=== PATIENT | female | born 1990 | race Caucasian/White ===

== ENCOUNTER 2018-08-08 17:29 | Emergency (ER) | payer OTHER, SELFPAY ==
--- NOTE | 2018-08-08 19:16 | EDM.PDOC ---
ED HPI GENERAL MEDICAL PROBLEM - General Chief Complaint: Skin Complaint Stated Complaint: WOOD TICK BITE/FEELS MELISSA [phone] Time Seen by Provider: 08/08/18 19:00 Source of Information: Reports: Patient, RN History Limitations: Reports: No Limitations - History of Present Illness INITIAL COMMENTS - FREE TEXT/NARRATIVE: 2 tick bites to left leg on Sunday. unaware of other bites. bruised are left upper inner thigh from where tick removed, Bumb on left side of head and neck. - Related Data Allergies Allergy/AdvReac Type Severity Reaction Status Date / Time Unable to Assess Allergy Unverified 08/08/18 18:38 Home Meds: Home Meds Albuterol Sulfate [Albuterol Sulfate HFA] 1 - 2 puff PO ASDIRECTED 11/04/13 [ History] Past Medical History Respiratory History: Reports: Asthma Social & Family History - Tobacco Use Smoking Status *Q: Current Every Day Smoker Years of Tobacco use: 5 Packs/Tins Daily: 0.5 - Caffeine Use Caffeine Use: Reports: Energy Drinks, Soda - Alcohol Use Days Per Week of Alcohol Use: 1 Number of Drinks Per Day: 1 Total Drinks Per Week: 1 - Recreational Drug Use Recreational Drug Use: Yes Recreational Drug Type: Reports: Marijuana/Hashish Recreational Drug Use Frequency: Socially ED ROS GENERAL - Review of Systems Review Of Systems: ROS reveals no pertinent complaints other than HPI. ED EXAM, SKIN/RASH Exam: See Below Exam Limited By: No Limitations General Appearance: Alert, Mild Distress Eye Exam: Bilateral Eye: EOMI Ears: Normal External Exam, Normal TMs Nose: Normal Inspection Throat/Mouth: Normal Inspection Head: Atraumatic Neck: Lymphadenopathy (L) (anterior. posterior cervical and ocipital lymphadenopathy on left. no lesions or sores in area noted) Respiratory/Chest: No Respiratory Distress, Lungs Clear, Normal Breath Sounds Cardiovascular: Normal Peripheral Pulses, Regular Rate, Rhythm GI/Abdominal: Normal Bowel Sounds Extremities: Other (tick bite left upper inner thigh quarter size echymosis, minimal erythema. inguinal lymph nodes enlarged on left) Neurological: Alert, Oriented, Normal Cognition Psychiatric: Flat Affect Skin: Warm, Dry, No Rash, Ecchymosis, Erythema (scant surrounding bite, no typical bullseye rash apparant), Wound/Incision (left thigh). No: Increased Warmth Associated features: Tenderness. No: Induration, Scaling Course - Vital Signs Last Recorded V/S: Last Vital Signs Temp 96.0 F 08/08/18 18:32 Pulse 95 08/08/18 18:32 Resp 20 08/08/18 18:32 BP 123/80 08/08/18 18:32 Pulse Ox 100 08/08/18 18:32 Departure - Departure Time of Disposition: 19:13 Disposition: Home, Self-Care 01 Condition: Good Clinical Impression: Tick bite of left thigh with local reaction Qualifiers: Encounter type: initial encounter Qualified Code(s): S70.362A - Insect bite ( nonvenomous), left thigh, initial encounter - Discharge Information Instructions: Tick Bite Information, Adult, [id number] Forms: ED Department Discharge Additional Instructions: alternate tylenol 650mg and ibuprofen 600mg every 4 hours as needed for discomfort doxycycline 100mg one twice daily for 2 weeks clinic follow up for recheck 10-14 days, sooner if symptoms worsen
== END 2018-08-08 19:22 | disposition home or self-care (01) ==
LOC: DL.ED 17:29
CPT/HCPCS: 99282

== ENCOUNTER 2018-11-12 17:31 | Emergency (ER) | payer OTHER ==
[2018-11-12] MEDS ORDERED: Albuterol/Ipratropium 3.0-0.5 MG/3 ML Neb Soln NEB ONE (17:55)
[2018-11-12] MEDS ORDERED: Sodium Chloride 0.9% 1,000 ML IV ONE (17:55)
[2018-11-12] MEDS ORDERED: methylPREDNISolone Sodium Succinate 125 MG/2 ML SDV IVPUSH ONE (17:55)
[2018-11-12] MEDS ORDERED: Sodium Chloride 0.9% 10 ML Syringe FLUSH PRN (17:55)
[2018-11-12] MEDS ORDERED: Ondansetron 4 MG/2 ML SDV IV ONE (18:02)
[2018-11-12] MEDS ORDERED: Codeine/guaiFENesin 100-10 MG/5 ML Syrup 5 ML Cup PO ONE (18:11)
[2018-11-12 18:23] LABS: ANION GAP 17.7; CHLORIDE,CL 103 mmol/L (101-111); SODIUM,NA 136 mmol/L (135-145)
--- NOTE | 2018-11-12 18:42 | EDM.PDOC ---
Scribed by Delma Walker 11/12/18 [id number] for Angélica Mckeon NP ED HPI GENERAL MEDICAL PROBLEM - General Chief Complaint: Respiratory Problem Stated Complaint: DIFFICULTY BREATHING, VOMITING Time Seen by Provider: 11/12/18 17:57 Source of Information: Reports: Patient, RN, RN Notes Reviewed History Limitations: Reports: No Limitations - History of Present Illness INITIAL COMMENTS - FREE TEXT/NARRATIVE: Patient presents to ER with complaint of coughing since yesterday, began vomiting today. Runny nose since yesterday. She admits to smoking 1/2 pack of cigars daily. Denies alcohol or drug use. She has had a cough since yesterday. She has had vomiting today. She has been vomiting, coughing, chest pains and shortness of breath. No diarrhea. Onset Date: 11/11/18 Duration: Getting Worse Location: Reports: Chest Quality: Reports: Ache Severity: Moderate Improves with: Reports: None Worsens with: Reports: None Associated Symptoms: Reports: No Other Symptoms - Related Data Allergies Allergy/AdvReac Type Severity Reaction Status Date / Time cefixime [From Suprax] Allergy Rash Verified 11/12/18 17:40 Home Meds: Home Meds Albuterol Sulfate [Albuterol Sulfate HFA] 1 - 2 puff PO ASDIRECTED PRN 11/04/13 [History] Albuterol [Ventolin HFA] 2 puff INH ASDIRECTED PRN 11/12/18 [History] Past Medical History Respiratory History: Reports: Asthma Social & Family History - Caffeine Use Caffeine Use: Reports: Energy Drinks, Soda ED ROS GENERAL - Review of Systems Review Of Systems: ROS reveals no pertinent complaints other than HPI. ED EXAM, GENERAL - Physical Exam Exam: See Below Exam Limited By: No Limitations General Appearance: Alert, WD/WN, No Apparent Distress Eye Exam: Bilateral Eye: EOMI, Normal Inspection, PERRL Ears: Normal External Exam, Normal Canal, Hearing Grossly Normal, Normal TMs Nose: Other (clear rhinorrhea) Throat/Mouth: Normal Inspection, Normal Lips, Normal Teeth, Normal Gums, Normal Oropharynx, Normal Voice, No Airway Compromise Head: Atraumatic, Normocephalic Neck: Normal Inspection, Supple, Non-Tender, Full Range of Motion Respiratory/Chest: Other (coarse). No: Wheezing Cardiovascular: Normal Peripheral Pulses, Regular Rate, Rhythm, No Edema, No Gallop, No JVD, No Murmur, No Rub GI/Abdominal: Normal Bowel Sounds, Soft, Non-Tender, No Organomegaly, No Distention, No Abnormal Bruit, No Mass (Female) Exam: Deferred Rectal (Female) Exam: Deferred Back Exam: Normal Inspection, Full Range of Motion, NT Extremities: Other (tender right hip) Neurological: Alert, Oriented, CN II-XII Intact, Normal Cognition, Normal Gait, Normal Reflexes, No Motor/Sensory Deficits Psychiatric: Anxious Skin Exam: Other (pale) Lymphatic: No Adenopathy Course - Vital Signs Last Recorded V/S: Last Vital Signs Temp 98.5 F 11/12/18 17:36 Pulse 126 H 11/12/18 17:56 Resp 24 H 11/12/18 17:36 BP 119/62 11/12/18 17:36 Pulse Ox 96 11/12/18 17:56 - Orders/Labs/Meds Orders: Active Orders 24 hr Category Date Time Status Peripheral IV Care [RC] . DIRECTED Care 11/12/18 17:56 Active RT Aerosol Therapy [RC] ASDIRECTED Care 11/12/18 17:56 Active Chest 1V Frontal [CR] Stat Exams 11/12/18 17:53 Taken DRUG SCREEN URINE BIORAD [URCHEM] Stat Lab 11/12/18 17:53 Ordered HCG QUALITATIVE,URINE [URCHEM] Stat Lab 11/12/18 17:52 Ordered UA RFX FERNY AND CULT IF INDIC [URIN] Stat Lab 11/12/18 17:53 Ordered Sodium Chloride 0.9% [Saline Flush] Med 11/12/18 17:55 Active 10 ml FLUSH ASDIRECTED PRN Peripheral IV Insertion Adult [OM.PC] Stat Oth 11/12/18 17:52 Ordered Medication Orders Sodium Chloride (Saline Flush) 10 ml FLUSH ASDIRECTED PRN PRN Reason: Keep Vein Open Last Admin: 11/12/18 18:10 Dose: 10 ml Labs: Laboratory Tests 11/12/18 11/12/18 Range/Units 17:59 17:59 WBC 17.2 H (5.0-10.0) 10^3/uL RBC 5.05 (4.2-5.4) 10^6/uL Hgb 15.6 (12.0-16.0) g/dL Hct 45.4 (37.0-47.0) % MCV 89.9 (80-100) fL MCH 30.9 (27.0-34.0) pg MCHC 34.4 (33.0-35.0) g/dL Plt Count 142 L (150-450) 10^3/uL Neut % (Auto) 89.4 H (42.2-75.2) % Lymph % (Auto) 5.1 L (20.5-50.1) % [place] % (Auto) 5.2 (2-8) % Eos % (Auto) 0.1 L (1.0-3.0) % Baso % (Auto) 0.2 (0.0-1.0) % Sodium 136 (135-145) mmol/L Potassium 3.7 (3.6-5.0) mmol/L Chloride 103 (101-111) mmol/L Carbon Dioxide 19.0 L (21.0-31.0) mmol/L Anion Gap 17.7 BUN 11 (7-18) mg/dL Creatinine 0.9 (0.6-1.3) mg/dL Est Cr Clr Drug Dosing 87.23 mL/min Estimated GFR (MDRD) > 60 BUN/Creatinine Ratio 12.22 Glucose 117 H (74-105) mg/dL Calcium 9.0 (8.4-10.2) mg/dl Total Bilirubin 0.9 (0.2-1.0) mg/dL AST 31 (10-42) IU/L ALT 24 (10-60) IU/L Alkaline Phosphatase 56 (42-121) IU/L Total Protein 7.8 (6.7-8.2) g/dl Albumin 4.6 (3.2-5.5) g/dl Globulin 3.2 Albumin/Globulin Ratio 1.44 Ethyl Alcohol < 5 mg/dL Meds: Medications Generic Name Dose Route Start Last Admin Trade Name Freq PRN Reason Stop Dose Admin Sodium Chloride 10 ml 11/12/18 17:55 11/12/18 18:10 Saline Flush FLUSH 10 ml ASDIRECTED PRN Administration Keep Vein Open Discontinued Medications Generic Name Dose Route Start Last Admin Trade Name Freq PRN Reason Stop Dose Admin Albuterol/Ipratropium 3 ml 11/12/18 17:55 11/12/18 18:04 Duoneb 3.0-0.5 Mg/3 Ml NEB 11/12/18 17:56 3 ml ONETIME ONE Administration Azithromycin 500 mg 11/12/18 18:55 Zithromax PO 11/12/18 18:56 ONETIME ONE Guaifenesin/Codeine Phosphate 5 ml 11/12/18 18:11 11/12/18 18:17 Robitussin Ac PO 11/12/18 18:12 5 ml ONETIME ONE Administration Sodium Chloride 1,000 mls @ 999 mls/hr 11/12/18 17:55 11/12/18 18:11 Normal Saline IV 11/12/18 18:55 999 mls/hr .BOLUS ONE Administration Methylprednisolone Sodium Succinate 125 mg 11/12/18 17:55 11/12/18 18:10 Solu-Medrol IVPUSH 11/12/18 17:56 125 mg ONETIME ONE Administration Ondansetron HCl 4 mg 11/12/18 18:02 11/12/18 18:10 Zofran IV 11/12/18 18:03 4 mg ONETIME ONE Administration - Radiology Interpretation Free Text/Narrative:: Chest xray: FINDINGS: Lungs: Unremarkable. No consolidation. Pleural space: Unremarkable. No pleural effusion. No pneumothorax. Heart/Mediastinum: Unremarkable. No cardiomegaly. Bones/joints: Unremarkable. IMPRESSION: 1. No acute findings. 2. No significant change is identified since the prior exam. Thank you for allowing us to participate in the care of your patient. Dictated and Authenticated by: Slim Loredo MD 11/12/2018 6:39 PM Central Time ([place] & [place]) See rad report Departure - Departure Time of Disposition: 18:57 Disposition: Home, Self-Care 01 Condition: Fair Clinical Impression: Acute asthma Acute bronchitis Qualifiers: Bronchitis organism: unspecified organism Qualified Code(s): J20.9 - Acute bronchitis, unspecified - Discharge Information *PRESCRIPTION DRUG MONITORING PROGRAM REVIEWED*: No *COPY OF PRESCRIPTION DRUG MONITORING REPORT IN PATIENT JEANINE: No Instructions: Upper Respiratory Infection, Adult, [id number], Shortness of Breath, Adult, [id number], Acute Bronchitis, Adult, [id number], Bronchospasm , Adult, [id number] Forms: ED Department Discharge Additional Instructions: RX: Azithromycin, prednisone, Cherratussin Continue to use nebulizers and inhalers as directed - My Orders Last 24 Hours: My Active Orders 11/12/18 17:52 HCG QUALITATIVE,URINE [URCHEM] Stat Peripheral IV Insertion Adult [OM.PC] Stat 11/12/18 17:53 Chest 1V Frontal [CR] Stat DRUG SCREEN URINE BIORAD [URCHEM] Stat UA RFX FERNY AND CULT IF INDIC [URIN] Stat 11/12/18 17:55 Sodium Chloride 0.9% [Saline Flush] 10 ml FLUSH ASDIRECTED PRN 11/12/18 17:56 Peripheral IV Care [RC] . DIRECTED RT Aerosol Therapy [RC] ASDIRECTED - Assessment/Plan Last 24 Hours: My Active Orders 11/12/18 17:52 HCG QUALITATIVE,URINE [URCHEM] Stat Peripheral IV Insertion Adult [OM.PC] Stat 11/12/18 17:53 Chest 1V Frontal [CR] Stat DRUG SCREEN URINE BIORAD [URCHEM] Stat UA RFX FERNY AND CULT IF INDIC [URIN] Stat 11/12/18 17:55 Sodium Chloride 0.9% [Saline Flush] 10 ml FLUSH ASDIRECTED PRN 11/12/18 17:56 Peripheral IV Care [RC] . DIRECTED RT Aerosol Therapy [RC] ASDIRECTED I have read and agree with the documentation that has been completed regarding this visit. By signing this record, I attest that the documentation was completed in my physical presence and is an accurate record of the encounter.
[2018-11-12] MEDS ORDERED: Azithromycin 250 MG Tab PO ONE (18:55)
== END 2018-11-12 19:11 | disposition home or self-care (01) ==
LOC: DL.ED 17:31
DX: J45.901 Unspecified asthma with (acute) exacerbation (principal); F17.210 Nicotine dependence, cigarettes, uncomplicated; Z88.1 Allergy status to other antibiotic agents; Z79.899 Other long term (current) drug therapy
CPT/HCPCS: 36415; 71045; 80053; 80320; 85025; 94640; 96361; 96374; 96375; 99283; A9270; J2405; J2930; J7030; G0480; J7620-GY

== ENCOUNTER 2019-07-30 12:44 | Emergency (ER) | payer SELFPAY ==
--- NOTE | 2019-07-30 12:50 | EDM.PDOC ---
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 Pt is 14 weeks, G1,P0 with report of a normal OB US last week. She called her clinic in [place] today and was told to take a hot bath and Tylenol. She took a bath and the pain went away briefly, but then returned and become severe. She called back and was told to go to the ER. She denies vaginal bleeding, discharge, contractions, leak of vag. fluid, or passage of clots or tissue. Denies vomiting, diarrhea, or dysuria. Denies PMHx, or PSHx. Pt denies chest pain, cough, shortness of breath, eye irritation/ drainage, loss of taste or smell, red tongue, rash or skin lesions, fevers, chills, recent travel, or known exposure to confirmed or suspected Covid-19 cases. Onset: Gradual Duration: Getting Worse, Waxing/Waning Location: Reports: Abdomen, Back, Pelvis Quality: Reports: Ache, Other (Cramps) Severity: Severe Improves with: Reports: None Worsens with: Reports: Movement Associated Symptoms: Reports: No Other Symptoms Right Lower Abdomen Pain Score (Numeric/FACES): 8 - Related Data Allergies Allergy/AdvReac Type Severity Reaction Status Date / Time cefixime [From Suprax] Allergy Rash Verified 07/30/19 13:00 Home Meds: Home Meds Albuterol Sulfate [Albuterol Sulfate HFA] 1 - 2 puff PO ASDIRECTED PRN 11/04/13 [History] Pnv No.95/Ferrous Fum/Folic AC [ Caplet] 2 tab PO DAILY 07/30/19 [ History] Past Medical History HEENT History: Reports: None Cardiovascular History: Reports: None Respiratory History: Reports: Asthma Gastrointestinal History: Reports: None Genitourinary History: Reports: None : 1 Para: 0 LMP (Approximate): (14 weeks per pt as of 6/3/20.) Musculoskeletal History: Reports: None Neurological History: Reports: None Psychiatric History: Reports: None Endocrine/Metabolic History: Reports: None Hematologic History: Reports: None Immunologic History: Reports: None Oncologic (Cancer) History: Reports: None Dermatologic History: Reports: None - Past Surgical History Female Surgical History: Reports: D&C Social & Family History - Family History Family Medical History: Noncontributory - Caffeine Use Caffeine Use: Reports: Energy Drinks, Soda - Living Situation & Occupation Living situation: Reports: with Family ED ROS GENERAL - Review of Systems Review Of Systems: Comprehensive ROS is negative, except as noted in HPI. ED EXAM - Physical Exam Exam: See Below Exam Limited By: No Limitations General Appearance: Alert, WD/WN, No Apparent Distress Eye Exam: Bilateral Eye: Normal Inspection Nose: Normal Inspection, Normal Mucosa, No Blood Throat/Mouth: Normal Inspection, Normal Lips, Normal Teeth, Normal Gums, Normal Oropharynx, Normal Voice, No Airway Compromise Head: Atraumatic, Normocephalic Neck: Normal Inspection, Supple, Non-Tender, Full Range of Motion Respiratory/Chest: No Respiratory Distress, Lungs Clear, Normal Breath Sounds, No Accessory Muscle Use, Chest Non-Tender Cardiovascular: Normal Peripheral Pulses, Regular Rate, Rhythm, No Edema, No Gallop, No JVD, No Murmur, No Rub GI/Abdominal Exam: Normal Bowel Sounds, Soft, No Organomegaly, No Distention, No Abnormal Bruit, Guarding (at RLQ), Rebound (RLQ), Tender (RLQ). No: Rigid Rectal Exam: Deferred (Female) Exam: Other (Deferred) Heart Tones: Present Heart Tones per Min: 140 Movement: Not Appreciated Back Exam: Full Range of Motion, CVA Tenderness (R). No: CVA Tenderness (L), Vertebral Tenderness Extremities: Normal Inspection, Normal Range of Motion, Non-Tender, Normal Capillary Refill, No Pedal Edema Neurological: Alert, Oriented, CN II-XII Intact, Normal Cognition, Normal Gait, No Motor/Sensory Deficits Psychiatric: Anxious Skin Exam: Warm, Dry, Intact, Normal Color, No Rash Course - Vital Signs Last Recorded V/S: Last Vital Signs Temp 98.7 F 07/30/19 12:46 Pulse 79 07/30/19 12:46 Resp 16 07/30/19 12:46 BP 119/71 07/30/19 12:46 Pulse Ox 98 07/30/19 12:46 - Orders/Labs/Meds Orders: Active Orders 24 hr Category Date Time Status Heart Tones [RC] ASDIRECTED Care 07/30/19 12:54 Active Peripheral IV Care [RC] . DIRECTED Care 07/30/19 13:02 Active CHLAMYDIA AND GONORRHEA BY TMA Routine Lab 07/30/19 13:51 Received Sodium Chloride 0.9% [Saline Flush] Med 07/30/19 13:02 Active 10 ml FLUSH ASDIRECTED PRN Peripheral IV Insertion Adult [OM.PC] Stat Oth 07/30/19 13:02 Ordered Medication Orders Sodium Chloride (Saline Flush) 10 ml FLUSH ASDIRECTED PRN PRN Reason: Keep Vein Open Last Admin: 07/30/19 13:15 Dose: 10 ml Labs: Laboratory Tests 07/30/19 07/30/19 07/30/19 Range/Units 12:59 12:59 13:17 WBC 9.6 (5.0-10.0) 10^3/uL RBC 4.63 (4.2-5.4) 10^6/uL Hgb 14.4 (12.0-16.0) g/dL Hct 41.2 (37.0-47.0) % MCV 89.0 (80-100) fL MCH 31.1 (27.0-34.0) pg MCHC 35.0 (33.0-35.0) g/dL Plt Count 200 (150-450) 10^3/uL Neut % (Auto) 67.9 (42.2-75.2) % Lymph % (Auto) 22.5 (20.5-50.1) % [place] % (Auto) 7.9 (2-8) % Eos % (Auto) 1.5 (1.0-3.0) % Baso % (Auto) 0.2 (0.0-1.0) % Sodium 136 (136-145) mmol/L Potassium 3.7 (3.5-5.1) mmol/L Chloride 102 (98-107) mmol/L Carbon Dioxide 27 (21-32) mmol/L Anion Gap 10.7 (7-13) mEq/L BUN 10 (7-18) mg/dL Creatinine 0.69 (0.55-1.02) mg/dL Est Cr Clr Drug Dosing 106.69 mL/min Estimated GFR (MDRD) > 60 BUN/Creatinine Ratio 14.5 (No establ ref range) Glucose 87 (74-99) mg/dL Calcium 8.3 L (8.5-10.1) mg/dL Total Bilirubin 0.3 (0.2-1.0) mg/dL AST 14 L (15-37) U/L ALT 19 (14-59) U/L Alkaline Phosphatase 49 (46-116) U/L Total Protein 6.4 (6.4-8.2) g/dL Albumin 3.4 (3.4-5.0) g/dL Globulin 3.0 Albumin/Globulin Ratio 1.1 Urine Color Cancelled Urine Appearance Cancelled Urine pH Cancelled Ur Specific [place] Cancelled Urine Protein Cancelled Urine Glucose (UA) Cancelled Urine Ketones Cancelled Urine Occult Blood Cancelled Urine Nitrite Cancelled Urine Bilirubin Cancelled Urine Urobilinogen Cancelled Ur Leukocyte Esterase Cancelled U Hyaline Cast (Auto) Cancelled Urine RBC Cancelled Urine WBC Cancelled Ur Epithelial Cells Cancelled Calcium Phosphate Cryst Cancelled Calcium Oxalate Crystal Cancelled Uric Acid Crystals Cancelled Triple Phos Crystals Cancelled Other Crystals Cancelled Amorphous Sediment Cancelled Urine Bacteria Cancelled Hyaline Casts Cancelled Granular Casts Cancelled Granular Casts (Auto) Cancelled Fine Granular Casts Cancelled Coarse Granular Casts Cancelled Urine Mucus Cancelled Urine Other Cancelled Urine Trichomonas Cancelled Urine Yeast Cancelled Urinalysis Comment Cancelled 07/30/19 Range/Units 13:51 WBC (5.0-10.0) 10^3/uL RBC (4.2-5.4) 10^6/uL Hgb (12.0-16.0) g/dL Hct (37.0-47.0) % MCV (80-100) fL MCH (27.0-34.0) pg MCHC (33.0-35.0) g/dL Plt Count (150-450) 10^3/uL Neut % (Auto) (42.2-75.2) % Lymph % (Auto) (20.5-50.1) % [place] % (Auto) (2-8) % Eos % (Auto) (1.0-3.0) % Baso % (Auto) (0.0-1.0) % Sodium (136-145) mmol/L Potassium (3.5-5.1) mmol/L Chloride (98-107) mmol/L Carbon Dioxide (21-32) mmol/L Anion Gap (7-13) mEq/L BUN (7-18) mg/dL Creatinine (0.55-1.02) mg/dL Est Cr Clr Drug Dosing mL/min Estimated GFR (MDRD) BUN/Creatinine Ratio (No establ ref range) Glucose (74-99) mg/dL Calcium (8.5-10.1) mg/dL Total Bilirubin (0.2-1.0) mg/dL AST (15-37) U/L ALT (14-59) U/L Alkaline Phosphatase (46-116) U/L Total Protein (6.4-8.2) g/dL Albumin (3.4-5.0) g/dL Globulin Albumin/Globulin Ratio Urine Color Yellow Urine Appearance Clear Urine pH 6.5 Ur Specific [place] >= 1.030 Urine Protein Negative Urine Glucose (UA) Negative Urine Ketones Negative Urine Occult Blood Negative Urine Nitrite Negative Urine Bilirubin Negative Urine Urobilinogen 0.2 Ur Leukocyte Esterase Negative U Hyaline Cast (Auto) Urine RBC Urine WBC Ur Epithelial Cells Calcium Phosphate Cryst Calcium Oxalate Crystal Uric Acid Crystals Triple Phos Crystals Other Crystals Amorphous Sediment Urine Bacteria Hyaline Casts Granular Casts Granular Casts (Auto) Fine Granular Casts Coarse Granular Casts Urine Mucus Urine Other Urine Trichomonas Urine Yeast Urinalysis Comment Meds: Medications Generic Name Dose Route Start Last Admin Trade Name Freq PRN Reason Stop Dose Admin Sodium Chloride 10 ml 07/30/19 13:02 07/30/19 13:15 Saline Flush FLUSH 10 ml ASDIRECTED PRN Administration Keep Vein Open Discontinued Medications Generic Name Dose Route Start Last Admin Trade Name Freq PRN Reason Stop Dose Admin Hydromorphone HCl 1 mg 07/30/19 13:02 07/30/19 13:26 Dilaudid IVPUSH 07/30/19 13:03 1 mg ONETIME ONE Administration Sodium Chloride 1,000 mls @ 999 mls/hr 07/30/19 13:02 07/30/19 14:26 Normal Saline IV 07/30/19 14:02 Infused .BOLUS ONE Infusion Ondansetron HCl 4 mg 07/30/19 13:02 07/30/19 13:23 Zofran IV 07/30/19 13:03 4 mg ONETIME ONE Administration - Radiology Interpretation Free Text/Narrative:: Pelvic ultrasound: Uterus enlarged. Single live ( heart rate 165 bpm) intrauterine gestation oblique lie and breech presentation. Satisfactory amniotic fluid volume and no obvious congenital abnormalities. Health appearing placenta located posteriorly/right of midline, corpus of the uterus with the leading edge clearly free of the internal cervical os. No sign of retroplacental hematoma or abruption. Simple cyst right adnexa (ovary) measure 2.8x.2.6x2.8cm. Good blood flow right adnexa and no extraovarium adnexal mass or free fluid in the cul-de-sac. [place]-rump length measure 7.68cm equals a 13 weeks 6 day gestation. See rad report. Departure - Departure Time of Disposition: 16:05 Disposition: Home, Self-Care 01 Condition: Good Clinical Impression: Right ovarian cyst Pelvic pain affecting Qualifiers: Trimester: second trimester Qualified Code(s): O26.892 - Other specified related conditions, second trimester - Discharge Information *PRESCRIPTION DRUG MONITORING PROGRAM REVIEWED*: Not Applicable *COPY OF PRESCRIPTION DRUG MONITORING REPORT IN PATIENT JEANINE: Not Applicable Instructions: Ovarian Cyst Forms: ED Department Discharge Additional Instructions: Use heating pad and Tylenol as needed for pain. Call your OB doctor to schedule a follow up appointment for SundayJuly 31 or SundayAugust 03. Sepsis Event Note - Focused Exam Vital Signs: Vital Signs Temp Pulse Resp BP Pulse Ox 07/30/19 12:46 98.7 F 79 16 119/71 98 Date Exam was Performed: 07/30/19 Time Exam was Performed: 16:11 - My Orders Last 24 Hours: My Active Orders 07/30/19 12:54 Heart Tones [RC] ASDIRECTED 07/30/19 13:02 Peripheral IV Care [RC] . DIRECTED Sodium Chloride 0.9% [Saline Flush] 10 ml FLUSH ASDIRECTED PRN Peripheral IV Insertion Adult [OM.PC] Stat 07/30/19 13:51 CHLAMYDIA AND GONORRHEA BY TMA Routine - Assessment/Plan Last 24 Hours: My Active Orders 07/30/19 12:54 Heart Tones [RC] ASDIRECTED 07/30/19 13:02 Peripheral IV Care [RC] . DIRECTED Sodium Chloride 0.9% [Saline Flush] 10 ml FLUSH ASDIRECTED PRN Peripheral IV Insertion Adult [OM.PC] Stat 07/30/19 13:51 CHLAMYDIA AND GONORRHEA BY TMA Routine
[2019-07-30] MEDS: Sodium Chloride 0.9% 10 ML Syringe FLUSH PRN (13:15)
[2019-07-30] MEDS: Sodium Chloride 0.9% 1,000 ML IV ONE (13:22)
[2019-07-30 13:23] LABS: ANION GAP 10.7 mEq/L (7-13); CHLORIDE,CL 102 mmol/L (98-107); SODIUM,NA 136 mmol/L (136-145)
[2019-07-30] MEDS: Ondansetron 4 MG/2 ML SDV IV ONE (13:23)
[2019-07-30] MEDS: HYDROmorphone 1 MG/ML Syringe IVPUSH ONE (13:26)
--- NOTE | 2019-07-30 15:54 | US ---
EXAMINATION: OB 2 trimester, single Gest SEX: Female AGE: 28 years CLINICAL HISTORY: 28-year-old gravid 2 Ab1 female with severe right lower quadrant pain (14 week gestation i.e. LMP 24 April 2019). INTERPRETATION: 1. Uterus enlarged. Single live ( heart rate 165 bpm) intrauterine gestation oblique lie and breech presentation. 2. Satisfactory amniotic fluid volume and no obvious congenital abnormalities. 3. Healthy appearing placenta located posteriorly/right of midline, corpus of the uterus with the leading edge clearly free of the internal cervical os. No sign of retroplacental hematoma or abruption. 4. Simple cyst right adnexa (ovary) measures 2.8 x 2.6 x 2.8 cm. Good blood flow right adnexa and no extraovarian right adnexal mass or free fluid in the cul-de-sac. 5. [place]-rump length measurement 7.68 cm equals a 13 week 6 day gestation.
== END 2019-07-30 16:13 | disposition home or self-care (01) ==
LOC: DL.ED 12:44
DX: O34.82 Maternal care for other abnormalities of pelvic organs, second trimester (principal); N83.201 Unspecified ovarian cyst, right side; O99.512 Diseases of the respiratory system complicating pregnancy, second trimester; J45.909 Unspecified asthma, uncomplicated; Z3A.14 14 weeks gestation of pregnancy; Z88.1 Allergy status to other antibiotic agents
CPT/HCPCS: 36415; 76805; 80053; 81003; 85025; 87491; 87591; 96374; 96375; 99284; J1170; J2405; J7030

== ENCOUNTER 2020-01-26 10:26 | Inpatient (IN) | payer MEDICAID ==
[2020-01-26] MEDS ORDERED: Sodium Chloride 0.9% 10 ML Syringe FLUSH PRN (10:52)
[2020-01-26] MEDS ORDERED: Methylergonovine 0.2 MG/1 ML Amp IM PRN (10:52)
[2020-01-26] MEDS ORDERED: Lidocaine 1% 30 ML SDV INJECT PRN (10:52)
[2020-01-26] MEDS ORDERED: Lactated Ringers 1,000 ML IV ONE (10:52)
[2020-01-26] MEDS ORDERED: Butorphanol 2 MG/ML SDV IVPUSH PRN ×2 (10:52)
[2020-01-26] MEDS ORDERED: Misoprostol 400 MCG (4 X 100 MCG TAB) RECTAL PRN (10:52)
[2020-01-26] MEDS ORDERED: Carboprost Tromethamine 250 MCG/1 ML Amp IM PRN (10:52)
[2020-01-26] MEDS ORDERED: Tranexamic Acid 1,000 MG in Sodium Chloride 0.9% 100 ML IV PRN (10:52)
--- NOTE | 2020-01-26 10:55 | PCM.LDHP ---
L&D History of Present Illness - General Date of Service: 01/26/20 Admit Problem/Dx: Patient Status Order with Admit Dx/Problem 01/26/20 10:52 Patient Status [ADT] Routine Admission Diagnosis/Problem Admission Diagnosis/Problem care Source of Information: Patient History Limitations: Reports: No Limitations - History of Present Illness Introduction:: 29-year-old at 39w4d presented to L&D with increased contractions for the past 6 hours. They are currently 3-4 minutes apart and painful which prompted her to come in. No vaginal bleeding or leaking of fluid. Baby has been active. No new headaches or vision changes. Patient was actually scheduled to see me in clinic today to transfer care from [place]. Records were reviewed in detail. is remarkable for: 1) THC use 2) Impaired glucose tolerance--abnormal 1 hour GTT, 3 of 4 values of 3 hour GTT normal FOB is not involved. - Related Data Allergies/Adverse Reactions: Allergies Allergy/AdvReac Type Severity Reaction Status Date / Time cefixime [From Suprax] Allergy Rash Verified 01/26/20 11:03 Home Medications: Home Meds Albuterol Sulfate [Albuterol Sulfate HFA] 1 - 2 puff INH Q4HR PRN 11/04/13 [History] Pnv No.95/Ferrous Fum/Folic AC [ Caplet] 1 tab PO DAILY 07/30/19 [History] Acetaminophen [Tylenol] 650 mg PO Q4H PRN tablet 01/28/20 [Rx] Docusate Sodium [Colace] 100 mg PO BID PRN cap 01/28/20 [Rx] Ibuprofen [Motrin] 800 mg PO Q8H PRN tablet 01/28/20 [Rx] Past Medical History HEENT History: Reports: None Cardiovascular History: Reports: None Respiratory History: Reports: Asthma Gastrointestinal History: Reports: None Genitourinary History: Reports: None, 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 History: Reports: , Spontaneous Musculoskeletal History: Reports: None Neurological History: Reports: None Psychiatric History: Reports: None Endocrine/Metabolic History: Reports: None Hematologic History: Reports: None Immunologic History: Reports: None Oncologic (Cancer) History: Reports: None Dermatologic History: Reports: None - Infectious Disease History Infectious Disease History: Reports: None - Past Surgical History Cardiovascular Surgical History: Reports: None Female Surgical History: Reports: D&C Other Female Surgeries/Procedures: Blighted Ovum Social & Family History - Family History Family Medical History: No Pertinent Family History Cardiac: Reports: None Endocrine/Metabolic: Reports: None Hematologic: Reports: None - Caffeine Use Caffeine Use: Reports: Soda Other Caffeine Use: "I don't drink water only Gatorade and soda" - Sexual History Sexual History: Reports: Vaginal [place] Other Sexual History Comment: last intercourse reported as 2 months ago - Living Situation & Occupation Living situation: Reports: with Family Occupation: Employed (works at [employer]) H&P Review of Systems - Review of Systems: Review Of Systems: See Below General: Reports: No Symptoms HEENT: Reports: No Symptoms Pulmonary: Reports: No Symptoms Cardiovascular: Reports: No Symptoms Genitourinary: Reports: No Symptoms Musculoskeletal: Reports: Back Pain Skin: Reports: No Symptoms L&D Exam - Exam Exam: See Below - OB Specific Fundal Height In cm: 38 Contraction Intensity: Moderate to Strong Movement: Active Heart Tones: Present Heart Tones per Min: 140 Heart Rate (FHR) Variability: Moderate (6-25 bmp) Presentation: Vertex - Damon Score Admon Score Cervix Position: Anterior Damon Score Consistency: Soft Damon Score Effacement: 51-70% Damon Score Dilation: > 5 cm Damon Score 's Station: -1 ,0 Damon Score Total: 11 - Exam General: Alert, Oriented, Mild Distress HEENT: Conjunctiva Clear, EACs Clear, Posterior Pharynx Clear Lungs: Clear to Auscultation, Normal Respiratory Effort Cardiovascular: Regular Rate, Regular Rhythm. No: Systolic Murmur, Diastolic Murmur Genitourinary: Normal external exam Back Exam: Normal Inspection Extremities: Normal Inspection, No Pedal Edema Skin: Warm, Dry, Intact - Patient Data Result Diagrams: 01/26/20 10:45 - Problem List (1) care SNOMED Code(s): 621026447, 17143609, 670505703, 143654689 ICD Code: Z34.90 - ENCNTR FOR SUPRVSN OF NORMAL , UNSP, UNSP TRIMESTER Status: Acute (2) Drug use affecting SNOMED Code(s): 67499114, 764137559 ICD Code: O99.320 - DRUG USE COMPLICATING , UNSPECIFIED TRIMESTER Status: Acute (3) Impaired glucose in , antepartum SNOMED Code(s): 827737130, 786449419 ICD Code: O99.810 - ABNORMAL GLUCOSE COMPLICATING Status: Acute Problem List Initiated/Reviewed/Updated: Yes Orders Last 24hrs: Active Orders 24 hr Category Date Time Status Patient Status [ADT] Routine ADT 01/26/20 10:52 Ordered Communication Order [RC] ASDIRECTED Care 01/26/20 10:52 Ordered Heart Tones [RC] PER UNIT ROUTINE Care 01/26/20 10:52 Ordered Nitrous Oxide Delivery [RC] ASDIRECTED Care 01/26/20 10:54 Ordered Notify Provider Vital Signs OB [RC] ASDIRECTED Care 01/26/20 10:52 Ordered Notify Provider [RC] PRN Care 01/26/20 10:52 Ordered OB Discontinue Nitrous Oxide [RC] ASDIRECTED Care 01/26/20 10:54 Ordered Pump Management, Intrathecal [RC] ASDIRECTED Care 01/26/20 10:52 Ordered Up ad Gissell [RC] ASDIRECTED Care 01/26/20 10:52 Ordered Vital Signs [RC] PER UNIT ROUTINE Care 01/26/20 10:52 Ordered Clear Liquid Diet [DIET] Diet 01/26/20 Lunch Ordered CBC W/O DIFF,HEMOGRAM [HEME] Routine Lab 01/26/20 10:52 Ordered CORONAVIRUS COVID-19 AUNG [MOLEC] Stat Lab 01/26/20 10:52 Ordered Acetaminophen [TylenoL] Med 01/26/20 10:52 Ordered 650 mg PO Q4H PRN Butorphanol [Stadol] Med 01/26/20 10:52 Ordered 0.5 mg IVPUSH Q3H PRN Butorphanol [Stadol] Med 01/26/20 10:52 Ordered 1 mg IVPUSH Q3H PRN Carboprost Tromethamine [Hemabate DS] Med 01/26/20 10:52 Ordered 250 mcg IM ASDIRECTED PRN Lactated Ringers @ 125 MLS/HR(1000ml) Med 01/26/20 11:00 Ordered Lactated Ringers [Ringers, Lactated] 1,000 ml IV ASDIRECTED Lactated Ringers [Ringers, Lactated] 1,000 ml Med 01/26/20 10:52 Ordered IV BOLUS Lidocaine 1% [Xylocaine-MPF 1%] Med 01/26/20 10:52 Ordered 30 ml INJECT ASDIRECTED PRN Methylergonovine [Methergine] Med 01/26/20 10:52 Ordered 0.2 mg IM ASDIRECTED PRN Ondansetron [Zofran] Med 01/26/20 10:52 Ordered 4 mg IVPUSH Q4H PRN Oxytocin 30 Units in NS @ 2 MUNITS/MIN(500ml) Med 01/26/20 11:00 Ordered Oxytocin/Normal Saline [Pitocin in NS 30 UNIT/500 ML] 30 unit in 500 ml IV TITRATE Sodium Chloride 0.9% [Saline Flush] Med 01/26/20 10:52 Ordered 10 ml FLUSH ASDIRECTED PRN Tranexamic Acid [Cyklokapron] 1,000 mg Med 01/26/20 10:52 Ordered Sodium Chloride 0.9% [Normal Saline] 100 ml IV ONETIME fentaNYL [Sublimaze] Med 01/26/20 10:52 Ordered 100 mcg IVPUSH Q1H PRN miSOPROStoL [Cytotec] Med 01/26/20 10:52 Ordered 800 mcg RECTAL ASDIRECTED PRN Saline Lock Insert [OM.PC] Routine Oth 01/26/20 10:52 Ordered Resuscitation Status Routine Resus Stat 01/26/20 10:52 Ordered Assessment/Plan Comment:: 29-year-old at 39w4d in active labor 1. Admit to L&D and initiate routine intrapartum cares 2. Patient is unsure if she would like an intrathecal for pain control 3. AROM when patient agreeable 4. Expectant management. Anticipate Chanelle Mederos MD
[2020-01-26] MEDS ORDERED: Oxytocin/Normal Saline 30 UNIT/500 ML BAG IV SCH (11:00)
[2020-01-26] MEDS: Lactated Ringers 1,000 ML IV SCH ×3 (11:00→17:09)
[2020-01-26] MEDS: fentaNYL 100 MCG/2 ML SDV IVPUSH PRN ×3 (11:08→15:39)
[2020-01-26] MEDS: Ondansetron 4 MG/2 ML SDV IVPUSH PRN ×2 (14:05→18:12)
[2020-01-26] MEDS ORDERED: fentaNYL 100 MCG/2 ML SDV ONE (16:41)
[2020-01-26] MEDS ORDERED: EPINEPHrine 1 MG/1 ML Amp ONE ×2 (16:41→17:00)
[2020-01-26] MEDS ORDERED: Sodium Bicarbonate 4.2% 2.5 MEQ/5 ML SDV ONE ×2 (16:42→17:00)
[2020-01-26] MEDS ORDERED: Sodium Chloride 0.9% 20 ML SDV ONE (17:00)
[2020-01-26] MEDS ORDERED: fentaNYL 100 MCG/2 ML SDV ITHECAL ONE (17:00)
--- NOTE | 2020-01-26 17:07 | PCM.SN.2 ---
- Free Text/Narrative Note: Intrathecal. Sitting position, sterile prep and drape. 1% lidocaine w bicarb for skinwheal to L3 L4 interspace. Introducer, 24 ga pencan x 1.Pos CSF, neg heme, neg parasthesia. 15 mcg pf sufenta, 0.1 ml pf 1:1000 epi, 35 mcg pf fentanyl, 0.4 ml pf ns and 6 mg of 0.75% pf bupivacaine injected after CSF aspiration. Pt to L lateral position. Prcoedure time 1645 to 1715
--- NOTE | 2020-01-26 19:28 | PCM.DEL ---
L & D Note - General Info Date of Service: 01/26/20 Mother's Due Date: 01/29/20 - Delivery Note Labor: Spontaneous, Augmented by ARM, Augmented by Oxytocin Delivery Outcome: Livebirth Delivery Method: Spontaneous Vaginal Delivery-Single Delivery Mode: Spontaneous Presentation: Vertex Nuchal Cord: None Anesthesia Type: Intrathecal Amniotic Fluid Description: Clear Episiotomy Type: None Laceration: 1st Degree, Perineal, Periurethral (Bilateral--no repair needed) Suture size: 4-0 Placenta: Intact, Spontaneous Cord: 3 Vessels Estimated Blood Loss: 250 Resuscitation Needed: No : Bulb Syringe, Warmed, Krebs Used, Warmer Used Score 1 min: 7 Score 5 min: 8 Delivery Comments (Free Text/Narrative):: Patient presented to L&D in active labor and was noted to be 6 cm dilated. Patient received IV Fentanyl and nitrous oxide after COVID deemed negative. AROM was performed for large amount of clear fluid. Patient's cervix was slow to progress so pitocin was started for augmentation. Patient seemed unable to relax due to pain so decision was made to proceed with intrathecal. Patient then rapidly progressed to complete dilation. After 30 minutes of pushing, she delivered a vaible female with Apgars of 7 and 8 at 1 and 5 minutes respectively. Cord was clamped x2 and cut, and baby was taken to the warmer. Cord blood was collected. The placenta delivered about 5 minutes later and was noted to be intact. Pitocin was initiated, and the uterus was noted to be firm. Bleeding was appropriate. Inspection of the perineum revealed shallow bilateral labial lacerations that were noted to be hemostatic so no repair was performed. A 1st degree perineal laceration was also noted. Continuous pressure was applied for 1 minute; however, bleeding persisted so a figure-of-8 suture was performed with 4-0 Vicryl suture. Good hemostasis was noted after repair. Uterus was again noted to be firm, and bleeding was noted to be appropriate. Patient tolerated the procedure well, and there were no immediate complications. - General Info Date of Service: 01/26/20 - Patient Data Vitals - Most Recent: Last Vital Signs Temp 36.7 C 01/26/20 16:00 Pulse 85 01/26/20 16:30 Resp 16 01/26/20 16:30 BP 160/112 H 01/26/20 16:30 Pulse Ox Weight - Most Recent: 83.915 kg I&O - Last 24 Hours: Intake & Output 01/26/20 01/26/20 01/26/20 06:59 14:59 22:59 Intake Total 1999 Balance 1999 Lab Results Last 24 Hours: Laboratory Results - last 24 hr 01/26/20 01/26/20 Range/Units 10:45 10:50 WBC 18.3 H (5.0-10.0) 10^3/uL RBC 4.40 (4.2-5.4) 10^6/uL Hgb 13.8 (12.0-16.0) g/dL Hct 38.9 (37.0-47.0) % MCV 88.4 (80-100) fL MCH 31.4 (27.0-34.0) pg MCHC 35.5 H (33.0-35.0) g/dL Plt Count 215 (150-450) 10^3/uL SARS-CoV-2 RNA (AUNG) Negative (NEGATIVE) Med Orders - Current: Current Medications Acetaminophen (Tylenol) 650 mg PO Q4H PRN PRN Reason: Pain (Mild 1-3) and fever Butorphanol Tartrate (Stadol) 0.5 mg IVPUSH Q3H PRN PRN Reason: Pain Butorphanol Tartrate (Stadol) 1 mg IVPUSH Q3H PRN PRN Reason: Pain Carboprost Tromethamine (Hemabate Ds) 250 mcg IM ASDIRECTED PRN PRN Reason: HEMORRHAGE Fentanyl (Sublimaze) 100 mcg IVPUSH Q1H PRN PRN Reason: Pain (moderate 4-6) Last Admin: 01/26/20 15:39 Dose: 100 mcg Documented by: Tranexamic Acid 1,000 mg/ (Sodium Chloride) 110 mls @ 660 mls/hr IV ONETIME PRN PRN Reason: Bleeding Oxytocin/Sodium Chloride (Pitocin In Ns 30 Unit/500 Ml) 30 unit in 500 mls @ 2 mls/hr IV TITRATE TYLER; Protocol Last Titration: 01/26/20 17:05 Dose: 2 munits/min, 2 mls/hr Documented by: Lactated Ringer's (Ringers, Lactated) 1,000 mls @ 125 mls/hr IV ASDIRECTED TYLER Last Admin: 01/26/20 17:09 Dose: 125 mls/hr Documented by: Lidocaine HCl (Xylocaine-Mpf 1%) 30 ml INJECT ASDIRECTED PRN PRN Reason: Perineal Repair Methylergonovine Maleate (Methergine) 0.2 mg IM ASDIRECTED PRN PRN Reason: Hemorrhage Misoprostol (Cytotec) 800 mcg RECTAL ASDIRECTED PRN PRN Reason: Hemorrhage Ondansetron HCl (Zofran) 4 mg IVPUSH Q4H PRN PRN Reason: Nausea/Vomiting Last Admin: 01/26/20 18:12 Dose: 4 mg Documented by: Sodium Chloride (Saline Flush) 10 ml FLUSH ASDIRECTED PRN PRN Reason: Keep Vein Open Discontinued Medications Epinephrine HCl (Adrenalin) Confirm Administered Dose 1 mg .ROUTE .STK-MED ONE Stop: 01/26/20 16:42 Fentanyl (Sublimaze) Confirm Administered Dose 100 mcg .ROUTE .STK-MED ONE Stop: 01/26/20 16:42 Lactated Ringer's (Ringers, Lactated) 1,000 mls @ 999 mls/hr IV BOLUS ONE Stop: 01/26/20 11:52 Last Admin: 01/26/20 10:55 Dose: 999 mls/hr Documented by: Sodium Bicarbonate (Sodium Bicarbonate 4.2%) Confirm Administered Dose 2.5 meq .ROUTE .STK-MED ONE Stop: 01/26/20 16:43 Sufentanil Citrate (Sufenta) Confirm Administered Dose 50 mcg .ROUTE .STK-MED ONE Stop: 01/26/20 16:42 - Problem List & Annotations (1) (normal spontaneous vaginal delivery) SNOMED Code(s): 06923857, 343163895 Code(s): O80 - ENCOUNTER FOR FULL-TERM UNCOMPLICATED DELIVERY Status: Acute (2) Obstetric labial laceration, delivered, current hospitalization SNOMED Code(s): 656079116, 845938727, 165183392 Code(s): O70.0 - FIRST DEGREE PERINEAL LACERATION DURING DELIVERY Status: Acute (3) Perineal laceration SNOMED Code(s): 075320017 Code(s): QQF0669 - Status: Acute (4) Drug use affecting SNOMED Code(s): 47418982, 146603249 Code(s): O99.320 - DRUG USE COMPLICATING , UNSPECIFIED TRIMESTER Status: Acute (5) Impaired glucose in , antepartum SNOMED Code(s): 124540780, 264009892 Code(s): O99.810 - ABNORMAL GLUCOSE COMPLICATING Status: Acute (6) care SNOMED Code(s): 023157744, 58172303, 208290533, 252285303 Code(s): Z34.90 - ENCNTR FOR SUPRVSN OF NORMAL , UNSP, UNSP TRIMESTER Status: Acute - Problem List Review Problem List Initiated/Reviewed/Updated: Yes - My Orders Last 24 Hours: My Active Orders 01/26/20 10:52 Patient Status [ADT] Routine Communication Order [RC] ASDIRECTED Notify Provider Vital Signs OB [RC] ASDIRECTED Notify Provider [RC] PRN Pump Management, Intrathecal [RC] ASDIRECTED Up ad Gissell [RC] ASDIRECTED Vital Signs [RC] PER UNIT ROUTINE Acetaminophen [TylenoL] 650 mg PO Q4H PRN Butorphanol [Stadol] 0.5 mg IVPUSH Q3H PRN Butorphanol [Stadol] 1 mg IVPUSH Q3H PRN Carboprost Tromethamine [Hemabate DS] 250 mcg IM ASDIRECTED PRN Lidocaine 1% [Xylocaine-MPF 1%] 30 ml INJECT ASDIRECTED PRN Methylergonovine [Methergine] 0.2 mg IM ASDIRECTED PRN Ondansetron [Zofran] 4 mg IVPUSH Q4H PRN Sodium Chloride 0.9% [Saline Flush] 10 ml FLUSH ASDIRECTED PRN Tranexamic Acid [Cyklokapron] 1,000 mg Sodium Chloride 0.9% [Normal Saline] 100 ml IV ONETIME fentaNYL [Sublimaze] 100 mcg IVPUSH Q1H PRN miSOPROStoL [Cytotec] 800 mcg RECTAL ASDIRECTED PRN Saline Lock Insert [OM.PC] Routine Resuscitation Status Routine 01/26/20 10:54 Nitrous Oxide Delivery [RC] ASDIRECTED OB Discontinue Nitrous Oxide [RC] ASDIRECTED 01/26/20 11:00 Lactated Ringers [Ringers, Lactated] 1,000 ml IV ASDIRECTED Oxytocin/Normal Saline [Pitocin in NS 30 UNIT/500 ML] 30 unit in 500 ml IV TITRATE 01/26/20 Lunch Clear Liquid Diet [DIET] - Assessment Assessment:: 29-year-old, now , s/p at 39w4d - Plan Plan:: 1. Initiate routine orders 2. Plans to bottlefeed 3. Anticipate discharge 01/28/2020 Chanelle Mederos MD
[2020-01-26] MEDS ORDERED: Simethicone 80 MG Tab.Chew PO PRN (19:30)
[2020-01-26] MEDS ORDERED: Oxytocin 10 Units/1 ML SDV IM PRN (19:30)
[2020-01-26] MEDS ORDERED: Benzocaine/Menthol 20%-0.5% Spray 56 GM Canister TOP PRN (19:30)
[2020-01-26] MEDS: hydrOXYzine HCl 25 MG Tab PO PRN (20:20)
[2020-01-26] MEDS ORDERED: Promethazine 25 MG/ML SDV IM PRN (21:15)
[2020-01-26] MEDS: Ibuprofen 800 MG Tab PO PRN (22:28)
[2020-01-27] MEDS: Docusate Sodium 100 MG Cap PO PRN ×2 (08:36→20:56)
[2020-01-27] MEDS: Prenatal Multivitamin with Calcium/Folic Acid/Iron Tab PO SCH (08:36)
[2020-01-27] MEDS: Ibuprofen 800 MG Tab PO PRN ×2 (08:36→17:47)
[2020-01-27] MEDS: Acetaminophen 325 MG Tab PO PRN ×2 (14:17→20:56)
[2020-01-27] MEDS: hydrOXYzine HCl 25 MG Tab PO PRN (22:58)
[2020-01-28] MEDS: Ibuprofen 800 MG Tab PO PRN (01:42)
--- NOTE | 2020-01-28 08:44 | PCM.PNPP ---
- General Info Date of Service: 01/27/20 Subjective Update: PPD#1. Patient is doing well. She is tolerating a general diet. Pain is well controlled with Tylenol and ibuprofen. No fever or chills. She is urinating and passing gas. Ambulating without difficulty. Bottle feeding. No concerns per patient, her mother or nursing staff. Functional Status: Reports: Pain Controlled, Tolerating Diet, Ambulating, Urinating - Review of Systems General: Reports: Fatigue HEENT: Reports: No Symptoms Pulmonary: Reports: No Symptoms Cardiovascular: Reports: No Symptoms Gastrointestinal: Reports: No Symptoms Genitourinary: Reports: No Symptoms Musculoskeletal: Reports: No Symptoms Skin: Reports: No Symptoms Neurological: Reports: No Symptoms Psychiatric: Reports: No Symptoms - General Info Date of Service: 01/27/20 - Patient Data Vital Signs - Most Recent: Last Vital Signs Temp 36.6 C 01/27/20 20:00 Pulse 91 01/27/20 20:00 Resp 18 01/27/20 20:00 BP 138/59 L 01/27/20 20:00 Pulse Ox 99 01/27/20 08:00 Weight - Most Recent: 83.915 kg Med Orders - Current: Current Medications Acetaminophen (Tylenol) 650 mg PO Q4H PRN PRN Reason: Pain (Mild 1-3) and fever Last Admin: 01/27/20 20:56 Dose: 650 mg Documented by: Benzocaine/Menthol (Dermoplast Pain Relief [place]) 0 gm TOP Q4H PRN PRN Reason: Perineal comfort measures Last Admin: 01/26/20 22:29 Dose: 1 spray Documented by: Carboprost Tromethamine (Hemabate Ds) 250 mcg IM ASDIRECTED PRN PRN Reason: HEMORRHAGE Docusate Sodium (Colace) 100 mg PO BID PRN PRN Reason: Constipation Last Admin: 01/27/20 20:56 Dose: 100 mg Documented by: Hydroxyzine HCl (Atarax) 50 mg PO BEDTIME PRN PRN Reason: Anxiety Last Admin: 01/27/20 22:58 Dose: 50 mg Documented by: Tranexamic Acid 1,000 mg/ (Sodium Chloride) 110 mls @ 660 mls/hr IV ONETIME PRN PRN Reason: Bleeding Oxytocin/Sodium Chloride (Pitocin In Ns 30 Unit/500 Ml) 30 unit in 500 mls @ 2 mls/hr IV TITRATE TYLER; Protocol Last Titration: 01/26/20 22:07 Dose: 0 munits/min, 0 mls/hr Documented by: Ibuprofen (Motrin) 800 mg PO Q8H PRN PRN Reason: Mild Pain or Fever Last Admin: 01/28/20 01:42 Dose: 800 mg Documented by: Methylergonovine Maleate (Methergine) 0.2 mg IM ASDIRECTED PRN PRN Reason: Hemorrhage Misoprostol (Cytotec) 800 mcg RECTAL ASDIRECTED PRN PRN Reason: Hemorrhage Ondansetron HCl (Zofran) 4 mg IVPUSH Q4H PRN PRN Reason: Nausea/Vomiting Last Admin: 01/26/20 18:12 Dose: 4 mg Documented by: Oxytocin (Pitocin) 10 unit IM ONETIME PRN PRN Reason: Bleeding Prenat Multivit/Price Lister/Iron/Folic Ac ( Plus Iron) 1 each PO DAILY [facility] Last Admin: 01/27/20 08:36 Dose: 1 each Documented by: Promethazine HCl (Phenergan) 12.5 mg IM ONETIME PRN PRN Reason: Nausea/Vomiting Last Admin: 01/26/20 21:28 Dose: 12.5 mg Documented by: Simethicone (Simethicone) 80 mg PO Q4H PRN PRN Reason: Gas Sodium Chloride (Saline Flush) 10 ml FLUSH ASDIRECTED PRN PRN Reason: Keep Vein Open Discontinued Medications Butorphanol Tartrate (Stadol) 0.5 mg IVPUSH Q3H PRN PRN Reason: Pain Butorphanol Tartrate (Stadol) 1 mg IVPUSH Q3H PRN PRN Reason: Pain Epinephrine HCl (Adrenalin) Confirm Administered Dose 1 mg .ROUTE .STK-MED ONE Stop: 01/26/20 16:42 Last Admin: 01/26/20 19:51 Dose: Not Given Documented by: Fentanyl (Sublimaze) 100 mcg IVPUSH Q1H PRN PRN Reason: Pain (moderate 4-6) Last Admin: 01/26/20 15:39 Dose: 100 mcg Documented by: Fentanyl (Sublimaze) Confirm Administered Dose 100 mcg .ROUTE .STK-MED ONE Stop: 01/26/20 16:42 Last Admin: 01/26/20 19:51 Dose: Not Given Documented by: Lactated Ringer's (Ringers, Lactated) 1,000 mls @ 999 mls/hr IV BOLUS ONE Stop: 01/26/20 11:52 Last Admin: 01/26/20 10:55 Dose: 999 mls/hr Documented by: Lactated Ringer's (Ringers, Lactated) 1,000 mls @ 125 mls/hr IV ASDIRECTED TYLER Last Admin: 01/26/20 17:09 Dose: 125 mls/hr Documented by: Lidocaine HCl (Xylocaine-Mpf 1%) 30 ml INJECT ASDIRECTED PRN PRN Reason: Perineal Repair Sodium Bicarbonate (Sodium Bicarbonate 4.2%) Confirm Administered Dose 2.5 meq .ROUTE .STK-MED ONE Stop: 01/26/20 16:43 Last Admin: 01/26/20 19:51 Dose: Not Given Documented by: Sufentanil Citrate (Sufenta) Confirm Administered Dose 50 mcg .ROUTE .STK-MED ONE Stop: 01/26/20 16:42 Last Admin: 01/26/20 19:51 Dose: Not Given Documented by: - Interaction Infant Disposition, : [place] to Nursery Feeding: Bottle Fed Support Person: Mother - Recovery Exam Fundal Tone: Firm Fundal Level: 2 Fingerbreadths Below Umbilicus Fundal Placement: Midline Lochia Amount: Small Lochia Color: Rubra/Red Perineum Description: Intact, Minimal Bruising/Swelling Episiotomy/Laceration: None Bladder Status: Nonpalpable, Voiding - Exam General: Alert, Oriented Lungs: Clear to Auscultation, Normal Respiratory Effort Cardiovascular: Regular Rate, Regular Rhythm, No Murmurs Extremities: No Pedal Edema Skin: Dry, Intact Neurological: No New Focal Deficit - Problem List & Annotations (1) Drug use affecting SNOMED Code(s): 11280141, 196323400 Code(s): O99.320 - DRUG USE COMPLICATING , UNSPECIFIED TRIMESTER Status: Acute (2) Impaired glucose in , antepartum SNOMED Code(s): 952477962, 310180296 Code(s): O99.810 - ABNORMAL GLUCOSE COMPLICATING Status: Acute (3) (normal spontaneous vaginal delivery) SNOMED Code(s): 78599953, 653142378 Code(s): O80 - ENCOUNTER FOR FULL-TERM UNCOMPLICATED DELIVERY Status: Acute (4) Obstetric labial laceration, delivered, current hospitalization SNOMED Code(s): 315256147, 904641259, 817746824 Code(s): O70.0 - FIRST DEGREE PERINEAL LACERATION DURING DELIVERY Status: Acute (5) Perineal laceration SNOMED Code(s): 991687813 Code(s): FYH8029 - Status: Acute - Problem List Review Problem List Initiated/Reviewed/Updated: Yes - My Orders Last 24 Hours: My Active Orders 01/27/20 09:00 Vit with Ca/FA/Iron [ Plus Iron] 1 each PO DAILY - Assessment Assessment:: 29-year-old now PPD#1 s/p at 39w4d - Plan Plan:: 1. Continue routine orders. 2. Bottle feeding 3. Anticipate discharge 01/28/2020 Chanelle Mederos MD
[2020-01-28] MEDS: Prenatal Multivitamin with Calcium/Folic Acid/Iron Tab PO SCH (12:57)
== END 2020-01-28 10:10 | disposition home or self-care (01) | DRG 806 ==
LOC: DL.OBCHECK 10:26 → DL.OB 10:52 → OBSVTOIN 19:10 → DL.OB 19:10
PROVIDERS: ADMIT Family Medicine; ATTEND Family Medicine
PROC: 3E0R3BZ Introduction of Anesthetic Agent into Spinal Canal, Percutaneous Approach (ICD-10-PCS; principal; 2020-01-26)
PROC: 00HU33Z Insertion of Infusion Device into Spinal Canal, Percutaneous Approach (ICD-10-PCS; 2020-01-26)
PROC: 10E0XZZ Delivery of Products of Conception, External Approach (ICD-10-PCS; 2020-01-26)
PROC: 10907ZC Drainage of Amniotic Fluid, Therapeutic from Products of Conception, Via Natural or Artificial Opening (ICD-10-PCS; 2020-01-26)
PROC: 0HQ9XZZ Repair Perineum Skin, External Approach (ICD-10-PCS; 2020-01-26)
DX: O99.814 Abnormal glucose complicating childbirth (principal); O99.324 Drug use complicating childbirth; Z37.0 Single live birth; O99.52 Diseases of the respiratory system complicating childbirth; J45.909 Unspecified asthma, uncomplicated; Z88.1 Allergy status to other antibiotic agents; Z79.899 Other long term (current) drug therapy; Z20.828 Contact with and (suspected) exposure to other viral communicable diseases; Z28.82 Immunization not carried out because of caregiver refusal; O70.0 First degree perineal laceration during delivery; F12.90 Cannabis use, unspecified, uncomplicated; Z3A.39 39 weeks gestation of pregnancy
CPT/HCPCS: 36415; 59409; 85027; A9270-GY; J0171; J2405; J2550; J2590; J3010; J7120; U0002

== ENCOUNTER 2022-03-10 16:00 | Emergency (ER) | payer MEDICAID ==
[2022-03-10] MEDS ORDERED: Ketorolac 30 MG/ML SDV IM ONE (16:29)
== END 2022-03-10 16:44 | disposition home or self-care (01) ==
LOC: DL.ED 16:00
DX: U07.1 COVID-19 (principal); J45.909 Unspecified asthma, uncomplicated; Z72.0 Tobacco use; Z88.1 Allergy status to other antibiotic agents; Z79.899 Other long term (current) drug therapy
CPT/HCPCS: 96372; 99283; J1885

== ENCOUNTER 2024-04-27 21:18 | Emergency (ER) | payer MEDICAID ==
[2024-04-27 22:03] LABS: HEMATOCRIT 42.5 % (37.0-47.0); HEMOGLOBIN 14.3 g/dL (12.0-16.0); MEAN CORPUSCULAR HEMOGLOBIN 30.8 pg (27.0-34.0); MEAN CORPUSCULAR HGB CONC 33.6 g/dL (33.0-35.0); MEAN CORPUSCULAR VOLUME 91.4 fL (80-100); RED BLOOD CELL COUNT 4.65 10^6/uL (4.2-5.4); WHITE BLOOD CELL COUNT,WBC 8.7 10^3/uL (5.0-10.0)
[2024-04-27 22:16] LABS: A/G RATIO 1.4; ALANINE AMINOTRANSFERASE,ALT 22 U/L (14-59); ALKALINE PHOSPHATASE 72 U/L (46-116); ANION GAP 13.7 mEq/L (7-13); ASPARTATE AMNIOTRANSFERASE,AST 13 U/L (15-37); BILIRUBIN TOTAL 0.3 mg/dL (0.2-1.0); BLOOD UREA NITROGEN,BUN 12 mg/dL (7-18); BUN/CREATININE RATIO 12.2 (No establ ref range); CALCIUM 9.5 mg/dL (8.5-10.1); CARBON DIOXIDE,CO2 30 mmol/L (21-32); CHLORIDE,CL 102 mmol/L (98-107); CREATININE 0.98 mg/dL (0.55-1.02); EST CRCL DRUG DOSING (CG) 71.82 mL/min; GLUCOSE RANDOM 101 mg/dL (70-99); POTASSIUM,K 3.7 mmol/L (3.5-5.1); PROTEIN TOTAL,TP 6.9 g/dL (6.4-8.2); SODIUM,NA 142 mmol/L (136-145)
[2024-04-27 22:18] LABS: ESTIMATED GFR 79 mL/min (>=60)
[2024-04-27] MEDS ORDERED: Ketorolac 30 MG/ML SDV IM ONE (22:49)
[2024-04-27] MEDS ORDERED: Sodium Chloride 0.9% 10 ML Syringe FLUSH PRN (22:49)
[2024-04-27] MEDS: Ketorolac 30 MG/ML SDV IVPUSH ONE (23:19)
[2024-04-27 23:42] LABS: D-DIMER QUANTITATIVE < 100 ng/mL (0-400)
[2024-04-27 23:44] LABS: PROTHROMBIN TIME 10.4 SEC (9.0-12.0); PTT,PARTIAL THROMBOPLSTIN TIME 27.4 SEC (22.0-34.0)
[2024-04-28 00:27] LABS: APPEARANCE,URINE CLEAR (CLEAR); BILIRUBIN,URINE NEGATIVE (NEGATIVE); COLOR,URINE YELLOW (YELLOW); GLUCOSE,URINE NEGATIVE (NEGATIVE); KETONES,URINE NEGATIVE (NEGATIVE); LEUKOCYTE ESTERASE,URINE NEGATIVE (NEGATIVE); NITRITE,URINE NEGATIVE (NEGATIVE); OCCULT BLOOD,URINE NEGATIVE (NEGATIVE); PROTEIN,URINE NEGATIVE (NEGATIVE); UROBILINOGEN,URINE 0.2 mg/dL (0.2-1.0)
== END 2024-04-28 00:40 | disposition home or self-care (01) ==
LOC: DL.ED 21:18
DX: M94.0 Chondrocostal junction syndrome [Tietze] (principal); F17.210 Nicotine dependence, cigarettes, uncomplicated; J45.909 Unspecified asthma, uncomplicated; Z88.1 Allergy status to other antibiotic agents; Z79.899 Other long term (current) drug therapy; Z86.16 Personal history of COVID-19
CPT/HCPCS: 36415; 80053; 81003; 83735; 84484; 85027; 85379; 85610; 85730; 93005; 96374; 99285; J1885; 93010; 99284

== ENCOUNTER 2024-09-29 12:47 | Emergency (ER) | payer MEDICAID | END 2024-09-29 13:28 | disposition home or self-care (01) | LOC: DL.ED 12:47 | DX: M79.5 Residual foreign body in soft tissue (principal); J45.909 Unspecified asthma, uncomplicated; Z88.8 Allergy status to other drugs, medicaments and biological substances; Z79.51 Long term (current) use of inhaled steroids; Z79.899 Other long term (current) drug therapy; Z86.16 Personal history of COVID-19 | CPT/HCPCS: 99283 ==